=== PATIENT | female | born 1935 | race Caucasian/White ===

== ENCOUNTER 2018-11-22 12:38 | Emergency (ER) | payer BC, OTHER ==
[~2018-11-22] VITALS: Ht 167.6 cm; Wt 74.8 kg
[~2018-11-22 12:38] MED LIST: ASA81 GT; CALC1TAB51 GT; LISI-209 PO; METO25TA3 GT; NAPR220C15 GT; OMEP20CA10 GT; ZOLP5TAB2 GT
[2018-11-22 12:52] VITALS: BP_SYST 150
[2018-11-22] MEDS ORDERED: NACL 0.9% 1,000 ML IV ONE (13:07)
--- NOTE | 2018-11-22 13:28 | NUR ---
Placed in room 03 . Placed on pipe supervisor, blood pressure machine and pulse oximeter. To gown for exam. Side rails up.
--- NOTE | 2018-11-22 13:30 | NUR ---
Pt AAOx4 presents to ED c/o high blood pressure and palpitations today. Pt took BP medication at home today, but noticed her BP was abnormally high. BP 140/53 in ED. Skin pink dry and warm, breathing even and unlabored. No other injuries/complaints per pt/noted. Will continue to monitor.
[2018-11-22 13:35] LABS: BASOPHILS % (AUTO) 0.9 % (0.0-2.0); EOSINOPHILS # (AUTO) 0.1 K/uL (0.0-0.4); EOSINOPHILS % (AUTO) 1.9 % (0.0-4.0); HEMOGLOBIN 13.6 g/dL (12.0-16.0); LYMPHOCYTES # (AUTO) 1.1 K/uL (1.0-5.5); MEAN CORPUSCULAR HEMOGLOBIN 30 pg (27-31); MEAN CORPUSCULAR HGB CONC 33 % (32-36); MEAN CORPUSCULAR VOLUME 89 fL (79.0-98.0); MONOCYTES # (AUTO) 0.3 K/uL (0.0-1.0); MONOCYTES % (AUTO) 7.1 % (1.7-9.3); NEUTROPHILS # (AUTO) 3.2 K/uL (1.8-7.7); NEUTROPHILS % (AUTO) 67.1 % (40.0-70.0); PLATELET COUNT (AUTO) 348 K/uL (130-430); RED BLOOD CELL COUNT(AUTO) 4.61 MIL/uL (4.2-6.2); RED CELL DISTRIBUTION WIDTH 12.4 % (9.0-15.0); WHITE BLOOD COUNT (AUTO) 4.7 K/uL (4.8-10.8)
[2018-11-22 13:46] LABS: ANION GAP 7 (5-15); CALCIUM 9.4 mg/dL (8.4-11.0); CHLORIDE 102 mmol/L (98-107); CREATININE 0.87 mg/dL (0.55-1.30); GLUCOSE 97 mg/dL (70-99); POTASSIUM 4.3 mmol/L (3.5-5.1); SODIUM SERUM 136 mmol/L (136-145); UREA NITROGEN, BLOOD 13 mg/dL (8-21)
[2018-11-22 13:46] LABS: BILIRUBIN,URINE NEGATIVE (NEGATIVE); BLOOD, URINE 2+ (NEGATIVE); COLOR,URINE YELLOW (YELLOW); GLUCOSE,URINE NEGATIVE (NEGATIVE); KETONES,URINE NEGATIVE (NEGATIVE); LEUKOCYTE ESTERASE ,URINE 3+ (NEGATIVE); NITRITE, URINE POSITIVE (NEGATIVE); PROTEIN URINE NEGATIVE (NEGATIVE); UROBILINOGEN,URINE 0.2 (0.2-1.0)
[2018-11-22 13:50] LABS: CLARITY/URINE HAZY (CLEAR)
[2018-11-22 13:52] LABS: ALANINE AMINOTRANSFERASE 20 U/L (12-78); ALBUMIN 3.6 g/dL (3.4-4.8); ASPARTATE AMINOTRANSFERASE 16 U/L (10-37); LIPASE 97 U/L (73-393); TOTAL BILIRUBIN 0.5 mg/dL (0.0-1.0)
[2018-11-22 13:54] LABS: BACTERIA,URINE MODERATE /HPF (None Seen); MUCUS,URINE 1+ /LPF (None Seen); WBC,URINE 20-50 /HPF (0-3)
--- NOTE | 2018-11-22 14:43 | NUR ---
Pt resting comfortably in bed with no signs of distress. Friend at bedside. Will continue to monitor.
--- NOTE | 2018-11-22 15:10 | NUR ---
ER at bedside examining patient post interventions.
[2018-11-22 15:29] VITALS: BP_SYST 180
--- NOTE | 2018-11-22 15:29 | NUR ---
Patient given written and verbal discharge instructions and verbalizes understanding. ER MD discussed with patient the results and treatment provided. Patient in stable condition. ID arm band removed. IV catheter removed intact and dressing applied, no active bleeding. Rx of Keflex given. Patient educated on pain management and to follow up with PMD. Pain Scale 0/10. Opportunity for questions provided and answered. Medication side effect fact sheet provided.
== END 2018-11-22 15:29 | disposition home or self-care (01) ==
LOC: SED 12:38
DX: N39.0 Urinary tract infection, site not specified (principal); I10 Essential (primary) hypertension; Z79.82 Long term (current) use of aspirin; Z79.899 Other long term (current) drug therapy
CPT/HCPCS: 36415; 71045; 80053; 81000; 82550; 83690; 83880; 84484; 85025; 85379; 85610; 85730; 87086; 93005; 99284; J7030